=== PATIENT | male | born 1980 | race Caucasian/White ===

== ENCOUNTER 2019-05-15 16:16 | Emergency (ER) | payer OTHER ==
[2019-05-15 16:28] VITALS: BP 132/83
--- NOTE | 2019-05-15 16:30 | PHYS DOC ---
Adult General Chief Complaint Chief Complaint: POST-OP PROBLEM HPI HPI Patient is a 38-year-old male who presents with complaint of some drainage from surgical site after having had a stimulator removed from his back about 2 weeks ago. Patient denies any fever. He does indicate that there is a knot underneath the skin and was worried about that as well.[] Review of Systems Review of Systems Constitutional: Denies fever or chills [] Respiratory: Denies cough or shortness of breath [] Cardiovascular: No additional information not addressed in HPI [] Integument: Complains of drainage from surgical wound[] Neurologic: Denies headache, focal weakness or sensory changes [] Physical Exam Physical Exam Constitutional: Well developed, well nourished, no acute distress, non-toxic appearance. [] Cardiovascular:Heart rate regular rhythm, no murmur [] Lungs & Thorax: Bilateral breath sounds clear to auscultation [] Skin: Surgical site noted in left posterior flank region demonstrates healing wounds with small amount of serosanguineous drainage. No secondary signs of infection are noted.. [] Neurologic: Alert and oriented X 3, no focal deficits noted. [] EKG EKG [] Radiology/Procedures Radiology/Procedures [] Course & Med Decision Making Course & Med Decision Making Pertinent Labs and Imaging studies reviewed. (See chart for details) [] Dragon Disclaimer Dragon Disclaimer This electronic medical record was generated, in whole or in part, using a voice recognition dictation system. Departure Departure: Impression: Primary Impression: Encounter for post surgical wound check Disposition: 01 HOME, SELF-CARE Condition: STABLE Referrals: WINIFRED OLIVIER MD (PCP) Patient Instructions: Wound Check GAY NEGRO Jr. DO May 15, 2019 16:30
== END 2019-05-15 16:32 | disposition home or self-care (01) ==
LOC: ER 16:16
DX: T81.89XA Other complications of procedures, not elsewhere classified, initial encounter (principal); Z98.890 Other specified postprocedural states
CPT/HCPCS: 99281

== ENCOUNTER 2019-12-05 17:41 | Emergency (ER) | payer OTHER ==
[~2019-12-05] VITALS: Ht 152.4 cm; Wt 65.0 kg
--- NOTE | 2019-12-05 18:38 | PHYS DOC ---
Past History Past Medical History: Gallstones, Hypertension Past Surgical History: Other Additional Past Surgical Histo: colostomy, LAK amputation 1987 Alcohol Use: None Drug Use: None General Adult EDM: Chief Complaint: MECHANICAL FALL HPI: HPI: 39-year-old male presents via EMS with head injury. The patient is wheelchair- bound. He was rolling across back not in his wheelchair when he fell out of it and hit the left side of his head. He currently has a mild headache. He denies any neck pain. He was not knocked unconscious. He has had no episodes of vomit ing. No nausea. He denies any other injuries. Review of Systems: Review of Systems: Constitutional: Denies fever or chills Eyes: Denies change in visual acuity HENT: Denies nasal congestion or sore throat Respiratory: Denies cough or shortness of breath Cardiovascular: Denies chest pain or edema GI: Denies abdominal pain, nausea, vomiting, bloody stools or diarrhea : Denies dysuria Musculoskeletal: Denies back pain or joint pain Integument: Denies rash Neurologic: Headache. Denies focal weakness or sensory changes Endocrine: Denies polyuria or polydipsia Lymphatic: Denies swollen glands Psychiatric: Denies depression or anxiety Heart Score: Risk Factors: Risk Factors: DM, Current or recent (<one month) smoker, HTN, HLP, family history of CAD, obesity. Risk Scores: Score 0 - 3: 2.5% MACE over next 6 weeks - Discharge Home Score 4 - 6: 20.3% MACE over next 6 weeks - Admit for Clinical Observation Score 7 - 10: 72.7% MACE over next 6 weeks - Early Invasive Strategies Allergies: Allergies: Allergies Coded Allergies Type Severity Reaction Last Updated Verified amitriptyline Allergy Unknown 05/15/19 Yes Physical Exam: PE: Constitutional: Well developed, well nourished, no acute distress, non-toxic appearance. [] HENT: Normocephalic, atraumatic, bilateral external ears normal, oropharynx moist, no oral exudates, nose normal. [] Eyes: PERRLA, EOMI, conjunctiva normal, no discharge. [] Neck: Normal range of motion, no tenderness, supple, no stridor. [] Cardiovascular:Heart rate regular rhythm, no murmur [] Lungs & Thorax: Bilateral breath sounds clear to auscultation [] Abdomen: Bowel sounds normal, soft, no tenderness, no masses, no pulsatile masses. [] Skin: 3 cm area of swelling of the left parietal scalp [] Back: No tenderness, no CVA tenderness. [] Extremities: Amputated left lower extremity, emaciated right lower extremity [] Neurologic: Alert and oriented X 3, normal motor function, normal sensory function, no focal deficits noted. [] Psychologic: Affect normal, judgement normal, mood normal. [] Current Patient Data: Vital Signs: Vital Signs Date Time Temp Pulse Resp B/P (MAP) Pulse Ox O2 Delivery O2 Flow Rate FiO2 12/05/19 17:45 97.8 86 20 133/100 (111) 98 Room Air EKG: EKG: [] Radiology/Procedures: Radiology/Procedures: [] Impressions: EXAM: CT HEAD WITHOUT IV CONTRAST CLINICAL HISTORY: Reason: LEFT TEMPORAL/OCCIPITAL PAIN s/p fall / Spl. Instructions: / History: COMPARISON: None. TECHNIQUE: Routine CT of the head without contrast. Soft tissues and bone windows were reviewed. PQRS compliance statement - One or more of the following individualized dose reduction techniques were utilized for this study: 1. Automated exposure control 2. Adjustment of the mA and/or kV according to patient size 3. Use of iterative reconstruction technique FINDINGS: There is no evidence of hemorrhage, mass or extra-axial fluid collection. Santos-white differentiation is maintained with no evidence of edema. There is no mass effect or shift of the intracranial structures. The ventricles, basilar cisterns and cortical sulci are normal in size and configuration for the patients stated age. The cerebellum and brainstem are unremarkable. The calvarium demonstrates no evidence of fracture or focal lesion. There is normal aeration of the visualized paranasal sinuses and mastoid air cells. The visualized portions of the orbits are normal. IMPRESSION: No evidence for acute intracranial process. EXAM: CT CERVICAL SPINE WITHOUT IV CONTRAST CLINICAL HISTORY: Reason: LEFT TEMPORAL/OCCIPITAL PAIN s/p fall / Spl. Instructions: / History: COMPARISON: None available. TECHNIQUE: Helical CT of the cervical spine was performed. Axial, coronal and sagittal reformatted images were also performed. PQRS compliance statement - One or more of the following individualized dose reduction techniques were utilized for this study: 1. Automated exposure control 2. Adjustment of the mA and/or kV according to patient size 3. Use of iterative reconstruction technique FINDINGS: Vertebral body heights are preserved. Moderate C6-7 disc height loss. Mild C5-6 disc height loss. Straightening of the normal cervical lordosis. No significant spondylolisthesis. No acute fracture. Predental space is preserved. IMPRESSION: No acute fracture or subluxation. Electronically signed by: Brian Horan MD (12/05/2019 6:33 PM) [facility] DICTATED AND SIGNED BY: BRIAN HORAN MD DATE: 12/05/191832 CC: REBECCA CLAROS DO; WINIFRED OLIVIER MD; JADEN CROOKS DO ~ Course & Med Decision Making: Course & Med Decision Making Pertinent Labs and Imaging studies reviewed. (See chart for details) The patient's CT of the head and cervical spine are negative for acute findings. See official report for more details. The patient is not on any blood thinners or antiplatelets. He is not exhibiting any concerning head trauma symptoms. He is stable for discharge at this time. [] Dragon Disclaimer: Dragon Disclaimer: This electronic medical record was generated, in whole or in part, using a voice recognition dictation system. Departure Departure: Impression: Primary Impression: Fall from wheelchair Qualified Codes: W05.0XXA - Fall from non-moving wheelchair, initial encounter Disposition: HOME/RESIDENCE PRIOR TO ADM Condition: STABLE Referrals: WINIFRED OLIVIER MD (PCP) Patient Instructions: Head Injury, Adult, [id number] Justification of Admission: Justification of Admission: Justification of Admission Dx: N/A REBECCA CLAROS DO Dec 05, 2019 18:38
[2019-12-05 18:45] VITALS: BP 162/89
== END 2019-12-05 18:48 | disposition home or self-care (01) ==
LOC: ER 17:41
DX: G89.11 Acute pain due to trauma (principal); R51 Headache; R60.0 Localized edema; I10 Essential (primary) hypertension; Z87.442 Personal history of urinary calculi; Z90.89 Acquired absence of other organs; Z98.890 Other specified postprocedural states; Z88.8 Allergy status to other drugs, medicaments and biological substances; W05.0XXA Fall from non-moving wheelchair, initial encounter; Y93.89 Activity, other specified; Y92.89 Other specified places as the place of occurrence of the external cause; Y99.8 Other external cause status
CPT/HCPCS: 70450; 72125; 99285